=== PATIENT | female | born 1985 | race Caucasian/White ===

== ENCOUNTER 2018-01-31 11:27 | Emergency (ER) | payer OTHER ==
[2018-01-31 11:27] VITALS: BMI 25.4
[2018-01-31 11:42] VITALS: BP 107/87; PULSE 84; RESP 18; TEMP 98.2; O2SAT 99
--- NOTE | 2018-01-31 13:34 | ED PDOC ---
Lower Extremity Pain/Injury Chief Complaint (Provider): Right foot pain History Per: Patient History/Exam Limitations: no limitations Onset/Duration Of Symptoms: Mins Current Symptoms Are (Timing): Still Present Additional History Per: Patient Additional Complaint(s): 33yo female no known past medical history, presents to ED with complaints of right foot pain after she injured it prior to arrival. 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 She is currently complaining of pain to the distal dorsum of her right foot as well as her 3rd and 4th toes on her right foot. She denies any head, hip, knee or back injury. She offers no other medical complaints. <Gopal Chaves III - Last Filed: 01/31/18 13:29> <Lynn Durbin PA-C - Last Filed: 01/31/18 14:27> Time Seen by Provider: 01/31/18 12:34 Chief Complaint (Nursing): Lower Extremity Problem/Injury Past Medical History Reviewed: Historical Data, Nursing Documentation, Vital Signs Vital Signs: Last Vital Signs Temp 98.2 F 01/31/18 11:40 Pulse 84 01/31/18 11:40 Resp 18 01/31/18 11:40 BP 107/87 01/31/18 11:40 Pulse Ox 99 01/31/18 11:40 - Medical History PMH: No Chronic Diseases Denies: Chronic Kidney Disease - Surgical History Surgical History: No Surg Hx - Family History Family History: States: No Known Family Hx <Gopal Chaves III - Last Filed: 01/31/18 13:29> Vital Signs: Last Vital Signs Temp 98.2 F 01/31/18 11:40 Pulse 84 01/31/18 11:40 Resp 18 01/31/18 11:40 BP 107/87 01/31/18 11:40 Pulse Ox 99 01/31/18 13:38 <Lynn Durbin PA-C - Last Filed: 01/31/18 14:27> - Home Medications Home Medications: Ambulatory Orders Medication Instructions Recorded Acetaminophen/Butalbital/Caf 1 tab PO TID PRN #20 tab 06/01/15 [Fioricet] Ibuprofen [Motrin] 600 mg PO Q6 #20 tab 01/30/16 Oxycodone HCl/Acetaminophen 1 tab PO Q4 #10 tab 01/30/16 [Percocet 325 mg-5 mg] Nitrofurantoin Macrocrystals 100 mg PO BID #10 cap 07/02/16 [Macrobid] Ondansetron ODT [Zofran ODT] 4 mg PO Q6 PRN #10 odt 07/02/16 Naproxen 500 mg PO BID PRN #20 tablet 01/31/18 - Allergies Allergies/Adverse Reactions: Allergies Allergy/AdvReac Type Severity Reaction Status Date / Time No Known Allergies Allergy Verified 06/01/15 18:01 Review of Systems ROS Statement: Except As Marked, All Systems Reviewed And Found Negative Musculoskeletal: Positive for: Foot Pain (right foot pain). Negative for: Back Pain, Leg Pain Neurological: Negative for: Other (head injury) <Gopal Chaves III - Last Filed: 01/31/18 13:29> Physical Exam - Reviewed Nursing Documentation Reviewed: Yes Vital Signs Reviewed: Yes - Physical Exam Appears: Positive for: Non-toxic, No Acute Distress Head Exam: Positive for: ATRAUMATIC, NORMAL INSPECTION, NORMOCEPHALIC Extremity: Positive for: Normal ROM (FROM of right foot ), Tenderness ( tenderness to dorsum of right foot, no edema or ecchymosis noted), Other (small abrasion less than 1cm to right hand.) Neurologic/Psych: Positive for: Alert, Oriented <Gopal Chaves III - Last Filed: 01/31/18 13:29> - ECG O2 Sat by Pulse Oximetry: 99 (RA) Pulse Ox Interpretation: Normal <Gopal Chaves III - Last Filed: 01/31/18 13:29> Medical Decision Making Medical Decision Making: Impression: Right foot injury Plan: -- XR right foot -- XR Right ankle -- Tylenol 650 mg PO Scribe Attestation: Documented by Myrtle Tesfaye acting as a scribe for Gopal Chaves DO Provider Attestation: All medical record entries made by the Scribe were at my direction and personally dictated by me. I have reviewed the chart and agree that the record accurately reflects my personal performance of the history, physical exam, medical decision making, and the department course for this patient. I have also personally directed, reviewed, and agree with the discharge instructions and disposition. <Gopal Chaves III - Last Filed: 01/31/18 13:29> Medical Decision Making: XR R foot : no fracture, no dislocation, as read by the radiologist XR R ankle: no fracture, no dislocation, as read by the radiologist On re-evaluation, patient is resting in bed comfortably in no acute distress. XR results d/w the patient. Dx of sprain d/w the patient, encouraged to ice, and elevate. Rogers dressing applied. Instructed on crutch walking. Advised to f/ u w/ workman's comp physician in 2 days without fail. Take medication as prescribed. Return to the ER at any time for any new or worsening symptoms. <Lynn Durbin PA-C - Last Filed: 01/31/18 14:27> Disposition <Gopal Chaves III - Last Filed: 01/31/18 13:29> - Patient ED Disposition Is Patient to be Admitted: No Counseled Patient/Family Regarding: Studies Performed, Diagnosis, Need For Followup, Rx Given - Disposition Disposition: Routine/Home Disposition Time: 14:20 <Lynn Durbin PA-C - Last Filed: 01/31/18 14:27> - Clinical Impression Clinical Impression: Ankle sprain, Foot sprain - Disposition Condition: STABLE Additional Instructions: Follow up with workman's comp in 2 days without fail. Take medication as prescribed. Return to the ER at any time fro any new or worsening symptoms. Prescriptions: Naproxen 500 mg PO BID PRN #20 tablet PRN Reason: Pain, Moderate (4-7) Instructions: Ankle Sprain, Foot Sprain (DC) Forms: [facility] ([place]), [facility] ED School/Work Excuse
--- NOTE | 2018-01-31 13:56 | RAD ---
PROCEDURE: Right Ankle Radiographs. HISTORY: R foot ankle injury COMPARISON: None FINDINGS: BONES: No acute fracture. JOINTS: Ankle mortise maintained. Talar dome intact SOFT TISSUES: Normal. OTHER FINDINGS: None. IMPRESSION: No demonstrated fracture or dislocation.
--- NOTE | 2018-01-31 13:56 | RAD ---
PROCEDURE: Right Foot Radiographs. HISTORY: R foot ankle injury COMPARISON: None. FINDINGS: BONES: No acute fracture. JOINTS: Remarkable. SOFT TISSUES: Normal. OTHER FINDINGS: None. IMPRESSION: No demonstrated fracture or dislocation.
== END 2018-01-31 15:43 | disposition home or self-care (01) ==
LOC: H.ER 11:27
DX: S93.401A Sprain of unspecified ligament of right ankle, initial encounter (principal); S93.601A Unspecified sprain of right foot, initial encounter; W19.XXXA Unspecified fall, initial encounter; Y99.0 Civilian activity done for income or pay

== ENCOUNTER 2018-04-18 15:37 | Emergency (ER) | payer OTHER ==
[2018-04-18 15:37] VITALS: BMI 25.4
--- NOTE | 2018-04-18 16:12 | ED PDOC ---
HPI: Chest Pain Time Seen by Provider: 04/18/18 15:40 Chief Complaint (Nursing): Chest Pain Chief Complaint (Provider): Chest Pain History Per: Patient History/Exam Limitations: no limitations Onset/Duration Of Symptoms: Mins (BUFFET ATTENDANT) Current Symptoms Are (Timing): Gone Now Quality: "Pain" Associated Symptoms: Diaphoresis Additional Complaint(s): 33 year old female presents to the ED via EMS with weakness, chest pain and back pain that began suddenly shortly before arrival. The chest pain radiates to the back. She also reports shortness of breath. Pain resolved in ambulance. She denies leg pain, leg swelling and recent travel. PMD: Gera Albert Past Medical History Reviewed: Historical Data, Nursing Documentation, Vital Signs Vital Signs: Last Vital Signs Temp 98 F 04/18/18 19:13 Pulse 74 04/18/18 19:13 Resp 20 04/18/18 19:13 BP 118/70 04/18/18 19:13 Pulse Ox 99 04/20/18 03:55 - Medical History PMH: No Chronic Diseases Denies: Chronic Kidney Disease - Surgical History Surgical History: No Surg Hx - Family History Family History: States: [place] - Allergies Allergies/Adverse Reactions: Allergies Allergy/AdvReac Type Severity Reaction Status Date / Time No Known Allergies Allergy Verified 06/01/15 18:01 SHANTELL Risk Score for UA/NSTEMI - SHANTELL Risk Score Age > 64: NO 3 or more CAD Risk Factors: NO Known CAD (Stenosis greater than 50%): NO Aspirin use in past 7 days: NO Severe Angina: NO EKG ST changes greater than 0.5mm: NO Positive Cardiac Marker: NO SHANTELL Score: 0 Risk %: 5% Wells Criteria for PE - Wells Criteria for Pulmonary Embolism Clinical Signs and Symptoms of DVT: No P.E is #1 Diagnosis, or Equally Likely: No Heart Rate >100: No Immobilization at least 3 days;Surgery previous 4 weeks: No Previous, objectively diagnosed PE or DVT: No Hemoptysis: No Malignancy w/treatment within 6 months, or palliative: No Total Score: 0 Review of Systems ROS Statement: Except As Marked, All Systems Reviewed And Found Negative Cardiovascular: Positive for: Chest Pain Musculoskeletal: Positive for: Back Pain Physical Exam - Reviewed Nursing Documentation Reviewed: Yes Vital Signs Reviewed: Yes - Physical Exam Appears: Positive for: Non-toxic, No Acute Distress Head Exam: Positive for: ATRAUMATIC, NORMAL INSPECTION, NORMOCEPHALIC Skin: Positive for: Normal Color, Warm, Dry Eye Exam: Positive for: EOMI, Normal appearance, PERRL Neck: Positive for: Normal, Painless ROM, Supple Cardiovascular/Chest: Positive for: Regular Rate, Rhythm Respiratory: Positive for: CNT, Normal Breath Sounds Gastrointestinal/Abdominal: Positive for: Normal Exam, Soft. Negative for: Tenderness Neurologic/Psych: Positive for: Alert, Oriented. Negative for: Motor/Sensory Deficits - Laboratory Results Result Diagrams: 04/18/18 16:26 04/18/18 16:26 - ECG O2 Sat by Pulse Oximetry: 99 (RA) Pulse Ox Interpretation: Normal Medical Decision Making Medical Decision Making: Time: 16:05 Initial Plan: --CMP --CBC --troponin I --D Dimer --Chest x-ray --EKG Scribe Attestation: Documented by Laura Donnelly, acting as a scribe for Gian Burns MD Provider Scribe Attestation: All medical record entries made by the Scribe were at my direction and personally dictated by me. I have reviewed the chart and agree that the record accurately reflects my personal performance of the history, physical exam, medical decision making, and the department course for this patient. I have also personally directed, reviewed, and agree with the discharge instructions and disposition. Disposition - Clinical Impression Clinical Impression: Chest pain - Patient ED Disposition Is Patient to be Admitted: Transfer of Care - Disposition Referrals: [facility] [Outside] Disposition: Transfer of Care Disposition Time: 17:00 Condition: GOOD Additional Instructions: Follow up with your PCP in 2-3 days. Instructions: Chest Pain Forms: [employer] (Nicaraguan), [facility] ED School/Work Excuse Patient Signed Over To: Chad Ledbetter Handoff Comments: pending workup
[2018-04-18] MEDS ORDERED: Sodium Chloride 0.9% 1,000 ML IV STA (16:29)
[2018-04-18 16:43] LABS: ALB/GLOB RATIO 1.3 (1.0-2.1); ALBUMIN 4.5 g/dL (3.5-5.0); ALT/SGPT 31 U/L (9-52); AST/SGOT 24 U/L (14-36); BLOOD UREA NITROGEN 15 mg/dl (7-17); CALCIUM 9.5 mg/dL (8.4-10.2); GFR AFRICAN-AMERICAN > 60; GFR NON-AFRICAN AMERICAN > 60
[2018-04-18 16:44] LABS: BASO % 0.5 % (0.0-2.0); EOS # 0.1 K/uL (0.0-0.7); EOS % 3.2 % (0.0-4.0); HEMOGLOBIN 12.1 g/dL (12.0-16.0); LYMPH # 2.2 K/uL (1.0-4.3); LYMPH % 50.6 % (20.0-40.0); MEAN CELL VOLUME 71.4 fl (81.0-99.0); MEAN CORPUSCULAR HEMOGLOBIN 22.7 pg (27.0-31.0); MEAN CORPUSCULAR HGB CONC 31.8 g/dL (33.0-37.0); MEAN PLATELET VOLUME 7.6 fl (7.2-11.7); MONO # 0.4 K/uL (0.0-0.8); MONO % 8.7 % (0.0-10.0); NEUT # 1.6 K/uL (1.8-7.0); NRBC % 0.1 % (0.0-0.0); RBC 5.33 Mil/uL (3.80-5.20); RED CELL DISTRIBUTION WIDTH 16.6 % (11.5-14.5); WHITE BLOOD COUNT 4.4 K/uL (4.8-10.8)
--- NOTE | 2018-04-18 17:08 | ED PDOC ---
- Laboratory Results Result Diagrams: 04/18/18 16:26 04/18/18 16:26 - ECG O2 Sat by Pulse Oximetry: 99 (RA) Pulse Ox Interpretation: Normal - Progress Re-evaluation Time: 18:41 Condition: Re-examined, Improved Medical Decision Making Medical Decision Making: Time: 1700 Patient signed out to me by Dr. Burns pending labs and chest x-ray. Time: 1711 HISTORY: cxr COMPARISON: No prior. TECHNIQUE: Chest PA and lateral FINDINGS: LUNGS: No active pulmonary disease. PLEURA: No significant pleural effusion identified. No pneumothorax apparent. CARDIOVASCULAR: Normal. OSSEOUS STRUCTURES: No significant abnormalities. VISUALIZED UPPER ABDOMEN: Normal. OTHER FINDINGS: None. IMPRESSION: No acute cardiopulmonary disease appreciated. Time: 171 D-Dimer was elevated and Angio Chest PE Protocol [CT] was ordered Time: 0 PROCEDURE: CT Chest with contrast (Pulmonary Angiogram) HISTORY: chest pain COMPARISON: None available. TECHNIQUE: Axial computed tomography images were obtained of the chest in the pulmonary arterial phase of enhancement. Coronal and sagittal reformatted images were created and reviewed. Intravenous contrast dose: Visipaque 320, 85 cc Radiation dose: Total exam DLP = 304.23 mGy-cm. This CT exam was performed using one or more of the following dose reduction techniques: Automated exposure control, adjustment of the mA and/or kV according to patient size, and/or use of iterative reconstruction technique. FINDINGS: PULMONARY ARTERIES: Unremarkable. No pulmonary embolism. AORTA: No acute findings. No thoracic aortic aneurysm. LUNGS: Trace bilateral basilar dependent atelectasis identified. . No nodule, mass or pulmonary consolidation. PLEURAL SPACES: Unremarkable. No effusion or pneuomothorax. HEART: Unremarkable. No cardiomegaly. No significant pericardial effusion. LYMPH NODES: No lymphadenopathy. BONES, CHEST WALL: Unremarkable. No fracture or destructive lesion OTHER FINDINGS: Curvilinear intrarenal calculus upper pole left kidney incidentally noted. IMPRESSION: Unremarkable CT pulmonary angiogram. No pulmonary embolus. Scribe Attestation: Documented by Jadiel Swift, acting as a scribe for Chad Ledbetter MD Provider Scribe Attestation: All medical record entries made by the Scribe were at my direction and personally dictated by me. I have reviewed the chart and agree that the record accurately reflects my personal performance of the history, physical exam, medical decision making, and the department course for this patient. I have also personally directed, reviewed, and agree with the discharge instructions and disposition. Disposition Doctor Will See Patient In The: Office Counseled Patient/Family Regarding: Studies Performed, Diagnosis, Need For Followup - Clinical Impression Clinical Impression: Chest pain - POA Present On Arrival: None - Disposition Referrals: [facility] [Outside] Disposition: Routine/Home Disposition Time: 18:42 Condition: GOOD Additional Instructions: Follow up with your PCP in 2-3 days. Instructions: Chest Pain Forms: [facility] (Ukrainian), [facility] ED School/Work Excuse
--- NOTE | 2018-04-18 17:12 | RAD ---
HISTORY: cxr COMPARISON: No prior. TECHNIQUE: Chest PA and lateral FINDINGS: LUNGS: No active pulmonary disease. PLEURA: No significant pleural effusion identified. No pneumothorax apparent. CARDIOVASCULAR: Normal. OSSEOUS STRUCTURES: No significant abnormalities. VISUALIZED UPPER ABDOMEN: Normal. OTHER FINDINGS: None. IMPRESSION: No acute cardiopulmonary disease appreciated.
[2018-04-18] MEDS ORDERED: Sodium Chloride 0.9% 50 ML IV ONE (17:34)
[2018-04-18] MEDS ORDERED: Iodixanol 320 MG/ML 100 ML BOTTLE IV ONE (17:34)
--- NOTE | 2018-04-18 18:28 | CT ---
PROCEDURE: CT Chest with contrast (Pulmonary Angiogram) HISTORY: chest pain COMPARISON: None available. TECHNIQUE: Axial computed tomography images were obtained of the chest in the pulmonary arterial phase of enhancement. Coronal and sagittal reformatted images were created and reviewed. Intravenous contrast dose: Visipaque 320, 85 cc Radiation dose: Total exam DLP = 304.23 mGy-cm. This CT exam was performed using one or more of the following dose reduction techniques: Automated exposure control, adjustment of the mA and/or kV according to patient size, and/or use of iterative reconstruction technique. FINDINGS: PULMONARY ARTERIES: Unremarkable. No pulmonary embolism. AORTA: No acute findings. No thoracic aortic aneurysm. LUNGS: Trace bilateral basilar dependent atelectasis identified. . No nodule, mass or pulmonary consolidation. PLEURAL SPACES: Unremarkable. No effusion or pneuomothorax. HEART: Unremarkable. No cardiomegaly. No significant pericardial effusion. LYMPH NODES: No lymphadenopathy. BONES, CHEST WALL: Unremarkable. No fracture or destructive lesion OTHER FINDINGS: Curvilinear intrarenal calculus upper pole left kidney incidentally noted. IMPRESSION: Unremarkable CT pulmonary angiogram. No pulmonary embolus.
[2018-04-18 19:13] VITALS: RESP 20; TEMP 98
[2018-04-18 19:15] VITALS: BP 118/70; PULSE 74
--- NOTE | 2018-04-19 11:40 | CARD ---
APPROVED REPORT EKG Measurement Heart [id number] NC [id number] <Conclusion> Normal sinus rhythm Normal ECG
[2018-04-20 03:55] VITALS: O2SAT 99
== END 2018-04-18 19:13 | disposition home or self-care (01) ==
LOC: H.ER 15:37
DX: R07.89 Other chest pain (principal)
CPT/HCPCS: 71046; 71275; 80053; 81025; 84484; 85025; 85378; 93005; 96360; 99284; J7030; Q9967

== ENCOUNTER 2018-08-22 11:34 | Emergency (ER) | payer MEDICAID, OTHER ==
[2018-08-22 11:35] VITALS: BMI 23.8
[2018-08-22 12:05] VITALS: O2SAT 98
[2018-08-22] MEDS ORDERED: Sodium Chloride 0.9% 1,000 ML IV STA (12:14)
--- NOTE | 2018-08-22 12:19 | ED PDOC ---
HPI: Abdomen Time Seen by Provider: 08/22/18 11:53 Chief Complaint (Nursing): GI Problem Chief Complaint (Provider): GI Problem History Per: Patient History/Exam Limitations: no limitations Onset/Duration Of Symptoms: Hrs Location Of Pain/Discomfort: Diffuse Quality Of Discomfort: Cramping Associated Symptoms: Vomiting, Diarrhea. denies: Urinary Symptoms Additional Complaint(s): 33 years old female presents to ER for evaluation of diffused abdominal pain associated with 15 to 20 episodes of diarrhea and vomiting onset this morning. Patient reports tinge of blood in vomit when her stomach is empty. She states pain improves after she vomit or experience diarrhea but it returns quickly later. Patient reports she bought cauliflower from [employer] 2 weeks ago and found Weevil in it yesterday while using it to cook. Patient is concerned that the Weevil is what caused the symptoms since this was her first time using that cauliflower. She denies any headache or shortness of breath. PMD: non provided Past Medical History Reviewed: Historical Data, Nursing Documentation, Vital Signs Vital Signs: Last Vital Signs Temp 98.4 F 08/22/18 11:39 Pulse 102 H 08/22/18 11:39 Resp 18 08/22/18 11:39 BP 127/81 08/22/18 11:39 Pulse Ox 98 08/22/18 11:59 - Medical History PMH: Anemia (GESTATIONAL) Denies: Chronic Kidney Disease - Surgical History Surgical History: Tonsillectomy Denies: Pacemaker - Family History Family History: States: [place] - Social History Current smoker - smoking cessation education provided: No Alcohol: None Drugs: Denies - Immunization History Hx Tetanus Toxoid Vaccination: No Hx Influenza Vaccination: No Hx Pneumococcal Vaccination: No - Home Medications Home Medications: Ambulatory Orders Medication Instructions Recorded Famotidine 1 tab PO DAILY 05/19/18 Omeprazole 1 tab PO DAILY 05/19/18 Ibuprofen [Motrin Tab] 400 mg PO ONCE PRN 05/22/18 Ondansetron [Zofran] 4 mg PO Q8H PRN #6 tab 08/22/18 - Allergies Allergies/Adverse Reactions: Allergies Allergy/AdvReac Type Severity Reaction Status Date / Time No Known Allergies Allergy Verified 08/22/18 11:59 Review of Systems ROS Statement: Except As Marked, All Systems Reviewed And Found Negative Gastrointestinal: Positive for: Vomiting, Abdominal Pain (diffused cramping), Diarrhea Genitourinary Female: Negative for: Dysuria, Hematuria Physical Exam - Reviewed Nursing Documentation Reviewed: Yes Vital Signs Reviewed: Yes - Physical Exam Appears: Positive for: Non-toxic, No Acute Distress Head Exam: Positive for: ATRAUMATIC, NORMOCEPHALIC Skin: Positive for: Normal Color, Warm, Dry Neck: Positive for: Normal, Painless ROM, Supple Cardiovascular/Chest: Positive for: Regular Rate, Rhythm. Negative for: Murmur Respiratory: Positive for: Normal Breath Sounds. Negative for: Wheezing Gastrointestinal/Abdominal: Positive for: Soft, Tenderness (Diffused) Back: Positive for: Normal Inspection. Negative for: L CVA Tenderness, R CVA Tenderness Extremity: Positive for: Normal ROM. Negative for: Tenderness, Pedal Edema, Swelling Neurologic/Psych: Positive for: Alert, Oriented (x3) - Laboratory Results Result Diagrams: 08/22/18 12:40 08/22/18 12:40 Interpretation Of Abn Labs: no acute - ECG O2 Sat by Pulse Oximetry: 98 (RA) Pulse Ox Interpretation: Normal - Progress ED Course And Treament: 1406: Stable. AAOx3. Pain free. Tolerated po. Wants to make a police report. Advised to fu with [place] police where incident occurred. [place] spoke with pt. and helped address the police reporting concern. Medical Decision Making Medical Decision Making: Time: 1214 Initial Plan: --CMP --Lipase --Urine Dipstick --Urine Culture --CBC --Zofran 4 mg IV --Bentyl 10 mg Po --NaCL 1,000 ml Scribe Attestation: Documented by Mary Chaney, acting as a scribe for Jose Kim MD. Provider Scribe Attestation: All medical record entries made by the Scribe were at my direction and pers onally dictated by me. I have reviewed the chart and agree that the record accurately reflects my personal performance of the history, physical exam, medical decision making, and the department course for this patient. I have also personally directed, reviewed, and agree with the discharge instructions and disposition. Disposition - Clinical Impression Clinical Impression: Abdominal pain, Nausea & vomiting, Diarrhea - Patient ED Disposition Is Patient to be Admitted: No Counseled Patient/Family Regarding: Studies Performed, Diagnosis, Need For Followup, Rx Given - Disposition Referrals: [facility] [Outside] - 08/23/18 Disposition: Routine/Home Disposition Time: 14:08 Condition: STABLE Additional Instructions: Return if not better in 3 days. Prescriptions: Ondansetron [Zofran] 4 mg PO Q8H PRN #6 tab PRN Reason: Nausea/Vomiting Instructions: Stomach Ache and Stomach Upset, Nausea and Vomiting, Adult, Diarrhea in Adolescents and Adults Forms: [facility] ([place]ux[place]ish), [facility] ED School/Work Excuse
[2018-08-22 12:51] LABS: BASO % 0.5 % (0.0-2.0); EOS # 0.1 K/uL (0.0-0.7); EOS % 2.2 % (0.0-4.0); HEMOGLOBIN 12.7 g/dL (12.0-16.0); LYMPH # 1.9 K/uL (1.0-4.3); MEAN CELL VOLUME 70.5 fl (81.0-99.0); MEAN CORPUSCULAR HEMOGLOBIN 22.5 pg (27.0-31.0); MEAN CORPUSCULAR HGB CONC 31.9 g/dL (33.0-37.0); MEAN PLATELET VOLUME 7.3 fl (7.2-11.7); MONO # 0.4 K/uL (0.0-0.8); MONO % 8.9 % (0.0-10.0); NEUT # 1.9 K/uL (1.8-7.0); NEUT % 44.4 % (50.0-75.0); NRBC % 0.1 % (0.0-0.0); RBC 5.65 Mil/uL (3.80-5.20); RED CELL DISTRIBUTION WIDTH 17.3 % (11.5-14.5); WHITE BLOOD COUNT 4.4 K/uL (4.8-10.8)
[2018-08-22 13:31] LABS: ALB/GLOB RATIO 1.2 (1.0-2.1); ALBUMIN 4.6 g/dL (3.5-5.0); AST/SGOT 22 U/L (14-36); BLOOD UREA NITROGEN 13 mg/dl (7-17); CALCIUM 9.8 mg/dL (8.4-10.2); GFR NON-AFRICAN AMERICAN > 60
[2018-08-22 13:36] LABS: ALT/SGPT 27 U/L (9-52); LIPASE 231 U/L (23-300)
[2018-08-22 13:42] LABS: SQUAMOUS EPITHIAL 2 /hpf (0-5); URINE BACTERIA RARE (<OCC); URINE BILIRUBIN NEGATIVE (NEGATIVE); URINE BLOOD NEGATIVE (NEGATIVE); URINE CLARITY SLIGHTY-CLOUDY (Clear); URINE COLOR YELLOW (YELLOW); URINE GLUCOSE (UA) NEG (Normal); URINE LEUKOCYTE ESTERASE TRACE Leu/uL (Negative); URINE PROTEIN NEGATIVE (NEGATIVE); URINE UROBILINOGEN 0.2-1.0 mg/dL (0.2-1.0)
[2018-08-22 14:49] VITALS: BP 110/70; PULSE 78; RESP 20; TEMP 98
== END 2018-08-22 14:49 | disposition home or self-care (01) ==
LOC: H.ER 11:34
DX: R10.9 Unspecified abdominal pain (principal); R11.2 Nausea with vomiting, unspecified; R19.7 Diarrhea, unspecified
CPT/HCPCS: 80053; 81003; 81025; 83690; 85025; 96360; 99284; J2405; J7030